=== PATIENT | male | born 1940 | race Caucasian/White ===

== ENCOUNTER 2017-08-29 13:42 | Inpatient (IN) | payer OTHER ==
[~2017-08-29] VITALS: Ht 177.8 cm; Wt 67.6 kg
[2017-08-29] MEDS ORDERED: TYLENOL EXTRA500 MG PO (14:44)
[2017-08-29] MEDS ORDERED: ACCUNEB SO1.25 MG/1 INH (14:45)
[2017-08-29] MEDS ORDERED: AMLODIPINE BESY10 MG PO (14:56)
[2017-08-29] MEDS ORDERED: AGGRENOX 25 MG1 EACH PO (14:57)
[2017-08-29] MEDS ORDERED: CARBAMAZEPINE100 MG PO (14:58)
[2017-08-29] MEDS ORDERED: VITAMIN D1000 UNI1 PO (14:59)
[2017-08-29] MEDS ORDERED: COLACE100 MG PO (15:00)
[2017-08-29] MEDS ORDERED: CARDURA4 MG PO (15:01)
[2017-08-29] MEDS ORDERED: DURAGESIC1 EAC1 TRANSDERM (15:02)
[2017-08-29] MEDS ORDERED: IRON325 PO (15:03)
[2017-08-29] MEDS ORDERED: HYDROPHILIC113 GM TOP (15:04)
[2017-08-29] MEDS ORDERED: NOVOLOG100 UNIT/1 SUBQ ×2 (15:05→15:07)
[2017-08-29] MEDS ORDERED: LEVEMIR SUBQ (15:06)
[2017-08-29] MEDS ORDERED: LIDOPRO OINTME121 GM TOP (15:09)
[2017-08-29] MEDS ORDERED: PRINIVIL10 MG PO (15:10)
[2017-08-29] MEDS ORDERED: NORTRIPTYLINE H50 M3 PO (15:11)
[2017-08-29] MEDS ORDERED: OXYCONTIN10 M1 PO (15:12)
[2017-08-29] MEDS ORDERED: MIRALAX17 GM PO (15:12)
[2017-08-29 17:00] VITALS: BP 166/73
[2017-08-29 20:26] VITALS: BP 105/52; BP 155/80
--- NOTE | 2017-08-29 23:36 | NUR ---
ASSUMED CARE AT 1930. PATIENT S/P LT AKA. RESTING IN BED. HAS STUMP ELECTRIC RANGE ASSEMBLER ON, BUT DRESSING WAS FOUND TO BE DISLODGED OFF INCISION. THIS NURSE CLEANSED WITH WOUND CLEANSER, TELFA APPLIED OVER INCISION, AND REWRAPPED WITH FRANK. STUMP ELECTRIC RANGE ASSEMBLER RE APPLIED. WAS IN MUCH PAIN AT BEGINNING OF SHIFT, INCISION VERY TENDER. NEW ORDERS OBTAINED FOR MEDS HE TAKES AT HOME. HYDROCODONE TOLERATED MUCH BETTER THAN OXYCODONE. ASSISTED WITH TURNS. TAKES PILLS WHOLE WITH WATER. ENCOURAGED HEEL OFFLOADED. BED ALARM ON. CALL LITE IN REACH. HOURLY ROUNDS CONTINUE.
[2017-08-30 04:29] LABS: HEMATOCRIT 26.9 % (42.0-52.0); MCH 27.9 pg (26.0-34.0); MCHC 33.3 g/dL (28.0-37.0); MCV 83.6 fL (80.0-100.0); MPV 6.8 fl. (7.2-11.1); RBC 3.21 mil/uL (4.50-6.00); WBC 7.4 thou/uL (4.0-11.0)
[2017-08-30 05:05] LABS: CALCIUM 8.8 mg/dL (8.5-10.1); CREATININE 2.2 mg/dL (0.6-1.3); POTASSIUM 5.1 mmol/L (3.5-5.1)
--- NOTE | 2017-08-30 05:56 | NUR ---
SLEPT MOST OF THE NIGHT. REFUSES TURNS. STUMP BLOCKER AND POLISHER GOLD WHEEL CONTINUES TO BE IN PLACE. MEDICATED FOR PAIN, SEE AUG. BED KATHERINE ON. CALL LITE IN REACH. HOURLY ROUNDS CONTINUE.
[2017-08-30 07:51] VITALS: BP 130/70
--- NOTE | 2017-08-30 18:58 | NUR ---
PT CARE ASSUMED THIS AM, ASSESSMENT AND VITAL SIGNS COMPLETED DOCUMENTED. DRESSING AND STUMP PROTECTOR REMAIN IN PLACE. PT HAS BEEN COOPERATIVE AND HAS WORKED WITH THERAPISTS. PAIN CONTROL HAS BEEN DIFFICULT, PRN OXY IR, HYDROCODONE AND TYLENOL ALL GIVEN WITH PARTIAL RELIEF OBTAINED. PT ENCOURAGED TO ELEVATE HIS RESIDUAL LIMB WHEN IN BED. PT HAS BEEN ABLE TO TRANSFER WITH MIN/MOD ASSIST, GAIT BELT AND WALKER. FALL PRECAUTIONS AND HOURLY ROUNDING CONTINUE.
[2017-08-30 20:24] VITALS: BP 116/55
--- NOTE | 2017-08-31 05:23 | NUR ---
ASSUMED CARES AT 1920. PT ALERT AND ORIENTED. PLEASANT. S/P LT AKA. STUMP DIRECTOR OF HOME HEALTH SERVICES IN PLACE. C/O PAIN TO LEFT STUMP. PAIN MEDS GIVEN NEEDED. TAKES PILLS WHOLE WITHOUT ISSUES. LEA CATHETER DD YELLOW URINE. SLEPT MOST OF THE NIGHT. NO OTHER COMPLAINTS. BED ALARM ON. CALL LIGHT IN REACH.
[2017-08-31 08:00] VITALS: BP 147/69
--- NOTE | 2017-08-31 16:58 | NUR ---
AM ASSESSMENT AND VITAL SIGNS COMPLETED DOCUMENTED. PT HAS REFUSED TO GET OUT OF BED TODAY, STATES HE ISN'T GETTING UP IF THERE IS NO THERAPY. PRN PAIN MEDICATIONS GIVEN FREQUENTLY SCHEDULE ALLOWS, PT RESTS/ SLEEPS BETWEEN DOSES. FC TO DD WITH CLEAR YELLOW URINE OUTPUT. DRESSING AND STUMP PROTECTOR REMAIN INTACT. FALL PRECAUTIONS AND HOURLY ROUNDING CONTINUE, NO ACUTE DISTRESS.
[2017-08-31 19:49] VITALS: BP 100/73; BP 122/58
--- NOTE | 2017-09-01 05:27 | NUR ---
ASSUMED CARES AT 1920. PT ALERT AND ORIENTED. S/P LEFT AKA. STUMP PRODUCTION CHECKER IN PLACE. LEA CATHETER PATENT AND DRAINING YELLOW URINE. PINK AREA TO BOTTOM RIGHT FOOT. MEPILEX CHANGED. STATES THAT PT NEEDS TO WEAR ALTERATED SHOE WHEN UP DUE TO HX OF OPEN SORE THERE. PAIN MEDS GIVEN PER PT REQUEST. ATE HS SNACK. USED CALL LIGHT APPROPRIATELY. BED ALARM ON.
[2017-09-01 07:56] VITALS: BP 147/66
--- NOTE | 2017-09-01 12:45 | NUR ---
Nutrition: Pt admitted to Rehab s/p AKA. Has stump perforator operator oil well. H/o DM, CKD, PVD, CVA, HTN. Eating 100% of CHO controlled diet. Wt: 160#. +BM. BG 145. On insulin. Appears at low risk. Will follow weekly.
--- NOTE | 2017-09-01 16:41 | NUR ---
WOUND NURSE: PATIENT SEEN TO ADDRESS AREA OF REDNESS ON THE PLANTAR ASPECT OF THE RIGHT FOREFOOT. PATIENT SEEN USING HIS FOOT TO PROPEL HIS WHEELCHAIR. PATIENT WAS ENCOURAGED TO PROPEL WHEELCHAIR USING HIS ARMS INSTEAD OF HIS FOOT. EXPLAINED MY REASONING FOR THIS IT PLACES HIM AT RISK FOR BREAKDOWN ESPECIALLY SINCE PATIENT REPORTING HE HAS NO SENSATION IN THE FOOT. PATIENT IS PROTECTING THE AREA WITH A BORDERED FOAM DRESSING.
--- NOTE | 2017-09-01 18:08 | NUR ---
pt calls for assist for transferrs to w/c and commode with 1 assist. dressing to lt stump intact. wound nurse charlene here this afternoon and has changed dressing to ball of rt. foot with no open areas noted. prn for lt stump pain given with good effect. pt keeps stump elevated. pt remains alert and orientated and eats meals in dinningroom. pt progresses towards goals and hourly rounding continues.
[2017-09-01 19:49] VITALS: BP 137/56
--- NOTE | 2017-09-01 23:52 | NUR ---
ASSUMED CARES AT 1920. PT ALERT AND ORIENTED. ALREADY IN BED. LEFT AKA WITH STUMP BLOCK SEALER IN PLACE. PAIN MEDS GIVEN REQUESTED. LEA CATHETER DD YELLOW URINE. C/O SOME IRRITATION TO PENIS. LIDOCAINE GELL APPLIED. PT SAYS THAT THIS DOES HELP. PT ANXIOUS FOR LEA TO BE REMOVED. INFORMED PT THAT IT MAY BEW FEW MORE DAYS BEFORE STARTING VOIDING TRIAL. MEPILEX TO RIGHT FOOT IN PLACE. CALL LIGHT IN REACH. WILL CONTINUE TO MONITOR.
--- NOTE | 2017-09-02 06:06 | NUR ---
PT SLEPT WELL OFF AND ON. PAIN MEDS GIVEN DURING THE NIGHT WHEN REQUESTED. TURNED ONTO RIGHT SIDE FOR SHORT TIME BUT OTHERWISE WANTS TO LAY ON BACK. LEFT STUMP UP ONTO PILLOW. CALL LIGHT IN REACH.
[2017-09-02 07:30] VITALS: BP 132/63
--- NOTE | 2017-09-02 16:00 | NUR ---
SW met with pt to complete initial assessment, introduce self, and SW role. Pt alert, oriented. Pt lives at home with . Pt said that [place] is installing a stair lift. Pt has wc, RWs. Pt has history of services but is not sure of the name of the agency and says that his may know the name. Pt did not have any concerns or questions. SW to continue to follow to assist with safe dc planning.
--- NOTE | 2017-09-02 16:49 | NUR ---
PT HAS BEEN UP TO W/C AND CALLS FOR TRANSFER ASSIST. PT DOES STAND PIVIOT TRANSFERR WITH WALKER AND GAITBELT AND QUEING WITH ASSIST OF 1.DRESSING TO LT STUMP CHANGED TODAY WITH TIANA INTACT TO INCISION AND NO DRAINAGE NOTED. PT HSA BLISTERS TO TOP OF LT THIGH FROM PAPER TAPE REMOVED. PICTURES TAKEN AND PLACED ON CHART. XEROFORM JOSE ROBERTO PLACED AND KERLIX WRAP PLACED OVER INCISION TO UPPER THIGH. PRN FOR PAIN GIVEN WITH FAIR EFFECT. PT HAS SHARP NERVE ENDING PAINS. PT HAS BEEN CONTINENT OF B+B AND TRANSFERRS TO TOILET. PT ALERT AND ORIENTATED AND PROGRESSES TOWARDS GOALS.
[2017-09-02 20:07] VITALS: BP 128/59
--- NOTE | 2017-09-03 05:15 | NUR ---
ASSUMED PATIENT CARE AT 1900. PATIENT RESTING IN BED WITH AT BEDSIDE. BLOOD SUGARS HAVE REMAINED IN THE 70'S THROUGHOUT THE DAY. SPOKE TO FAMILY ABOUT BLOOD GLUCOSE RESULTS AND INQUIRED TO HOW THEY MANAGED WHEN AT HOME. FAMILY STATED THAT THEY ALWAYS GIVE HIS INSULIN ORDERED. PATIENT RECEIVED LONG-ACTING INSULIN AT HS, ALONG WITH A SNACK AND SOME JUICE. MINOR COMPLAINTS OF PAIN IN LEFT LEG. DID NOT WITNESS PATIENT AMBULATION OR PERFORM CARE NEEDS. ABLE TO URINATE VIA URINAL DURING NIGHT. NO CONCERNS NOTED BY PATIENT OR SPOUSE. ORDNANCE KEEPER AND HOURLY ROUNDING COMPLETED DOCUMENTED.
[2017-09-03 08:00] VITALS: BP 156/69
--- NOTE | 2017-09-03 14:55 | NUR ---
SW met with pt to review team conference summary and discuss team's recommendation to reteam to reassess pt length of stay during team conference on next Friday. Pt was not sure he really needed to stay another week but agreed that he was making progress and that he may be able to improve closer to independent with tasks. Pt also mentioned that the stair lift is still in the process of being installed. Pt to dc home with and has needed DME; pt did not express any concerns or questions at this time. SW to continue to follow to assist with safe dc planning.
[2017-09-03 17:20] LABS: URINE BILIRUBIN NEGATIVE (Negative); URINE BLOOD 3+ (Negative); URINE CLARITY CLOUDY; URINE COLOR YELLOW; URINE GLUCOSE-RANDOM NEGATIVE (Negative); URINE KETONES NEGATIVE (Negative); URINE LEUKOCYTES-REFLEX 2+ (Negative); URINE NITRITE-REFLEX POSITIVE (Negative); URINE PROTEIN 3+ (Negative); URINE UROBILINOGEN 0.2 E.U./dl (0.2-1.0)
[2017-09-03 18:01] LABS: SQUAMOUS NONE SEEN /LPF (0-3); URINE WBC-REFLEX 6-15 Few /HPF (0-5)
[2017-09-03 18:02] LABS: TRIPLE PHOSPHATE CRYSTALS 4-10 Moderate /LPF (None Seen)
[2017-09-03 18:03] LABS: AMORPHOUS PHOSPHATES Few /LPF (None Seen); HYALINE CASTS 0-3 Few /LPF (None Seen)
--- NOTE | 2017-09-03 18:04 | NUR ---
PT CARE ASSUMED THIS AM, ASSESSMENT AND VITAL SIGNS COMPLETED DOCUMENTED. PT HAS BEEN COOPERAIVE AND HAS WORKED WITH THERAPY, GRADUAL PROGRESS TOWARD DISCHARGE GOALS. FENTANYL PATCH DOSE INCREASED FOR BETTER PAIN MANAGEMENT.
[2017-09-03 18:05] LABS: MUCUS None Seen strn/LPF (None Seen)
--- NOTE | 2017-09-03 18:20 | NUR ---
PT RESTING IN BED AFTER DINNER, OXY IR 10 MG GIVEN FOR BREAKTHROUGH PAIN WITH GOOD RELIEF OBTAINED. URINE SPECIMEN SENT TO THE LAB, UTI IS PRESENT, CULTURES PENDING. DRESSING AND STUMP PROTECTOR C/D/I TP LEFT RESIDUAL LIMB. HOURLY ROUNDING AND FALL PRECAUTIONS CONTINUE.
[2017-09-03 19:46] VITALS: BP 101/34
--- NOTE | 2017-09-04 05:12 | NUR ---
ASSUMED PT CARE AT 1930. PT ALERT AND ORIENTED X4. ALREADY IN BED AT SHIFT CHANGE. LEFT AKA WITH STUMP THREADER IN PLACE. TAKES PILLS WHOLE WITH WATER WITHOUT DIFFICULTY. LEA CATHETER TO DD DRAINING YELLOW URINE. PT TO START VOIDING TRIAL TODAY. PT SLEPT WELL OVERNIGHT. CALL LIGHT AND FREQUENTLY USED ITEMS WITHIN REACH. HOURLY ROUNDING IN PROGRESS, WILL CONTINUE TO MONITOR.
[2017-09-04 07:48] VITALS: BP 147/57
--- NOTE | 2017-09-04 16:48 | NUR ---
AM ASSESSMENT AND VITAL SIGNS COMPLETED DOCUMENTED. PT STATES HIS PAIN BETTER CONTROLLED WITH THE FENTANYL PATCH. PRN OXY IR GIVEN TWICE THIS SHIFT WITH GOOD RELIEF. DRESSING AND STUMP PROTECTOR IN PLACE. PT IS MAKING GOOD PROGRESS TOWARD DISCHARGE GOALS. PT IS TRANSFERRING WITH MIN ASSIST OF NURSING, GAIT BELT AND WALKER. LEA CATH IS TO BE DC'D FRIDAY FOR A VOIDING TRIAL. FALL PRECAUTIONS AND HOURLY ROUNDING IN PLACE.
[2017-09-04 20:19] VITALS: BP 120/55
--- NOTE | 2017-09-05 05:21 | NUR ---
ASSUMED PT CARE AT 1930. PT ALERT AND ORIENTED X4, POLITE AND COOPERATIVE WITH CARES. ALREADY IN BED AT SHIFT CHANGE. LEFT AKA WITH DRESSING AND STUMP SECONDARY HISTORY TEACHER IN PLACE. PRN OXY IR GIVEN TWICE THIS SHIFT. TAKES PILLS WHOLE WITH WATER WITHOUT DIFFICUTLY. LEA CATH TO BE DC'D TODAY FOR VOIDING TRIAL. CALL LIGHT AND FRQUENTLY USED ITEMS WITHIN REACH. BED ALARM ON FOR SAFETY. HOURLY ROUNDING IN PROGRESS, WILL CONTINUE TO MONITOR.
[2017-09-05 07:30] VITALS: BP 135/61
--- NOTE | 2017-09-05 17:40 | NUR ---
PT HAS VOIDED SINCE LEA REMOVED WITH TOTAL 400ML CLEAR YELLOW URINS. BLADDER SCAN DONE WITH 160ML RESIDUAL AFTER 200ML VOID. PT REMINDED TO DRINK FLUIDS FOR GOOD OUTPUT. PT ALSO STARTED ON FLOMAX TODAY AND PO ANTIBIOTIC FOR UTI. PRN FOR LT STUMP PAIN GIVEN WITH GOOD EFFECT. PT HAS PAIN WHEN LT STUMP TOUCHED WITH MOVEMENT. PT REMAINS ALERT AND ORIETNATED AND CALLS FOR ASSIST WITH ALL TRAMSFERRS. PT TRANSFERRS WELL WITH GAITBELT, WALKER AND MIN ASSIST WITH PIVIOT AND HOPPING. PT CONTINUES TO PROGRESS TOWARDS GOALS AND HOURLY ROUNDING CONTINUES.
[2017-09-05 20:18] VITALS: BP 145/57
--- NOTE | 2017-09-06 05:28 | NUR ---
ASSUMED PT CARE AT 1930. PT ALERT AND ORIENTED X4, COOPERATIVE WITH CARES. LEFT AKA WITH DRESSING AND STUMP SUPERINTENDENT CONTAINER TERMINAL IN PLACE. SCHEDULED FLOMAX GIVEN, PT VOIDED 850 CC OF URINE THIS SHIFT. PT TRANSFERS WITH MIN ASSIST, GAITBELT, WALKER. PRN MEDICATION GIVEN FOR LEFT STUMP PAIN. CALL LIGHT AND FREQUENTLY USED ITEMS WITHIN REACH. USES CALL LIGHT APPROPRIATELY. HOURLY ROUNDING IN PROGRESS, WILL CONTINUE TO MONITOR.
[2017-09-06 07:00] VITALS: BP 148/66
--- NOTE | 2017-09-06 16:40 | NUR ---
ASSUMMED CARE OF PT AT 0730, PT ALERT AND ORIENTED, PT TRANSFERS WITH ASSIST OF 1, GB AND STAND PIVOT, PT REFUSES TO USE WALKER AT TIMES TO TRANSFERS, PT INSTRUCTED THAT HE NEEDS TO USE WALKER FOR SAFETY, PT STATES HIS PAIN IS 7-10 IN HIS LEFT STUMP, MEDICATED PER ORDERS, PT STATES HAS SPASMS AT INTERVALS, PT VOIDS PER URINAL IN LARGE AMOUNTS, DRESSING C/D/I. STUMP CLINICAL THERAPIST INTACT, TAKING FOOD AND FLUIDS WELL, REFUSES TO GO TO DININGROOM FOR MEALS, PARTICIPATED IN ALL THERAPIES, HOURLY ROUNDING COMPLETED, ASSESSMENT COMPLETE WILL CONTINUE TO MONITOR.
[2017-09-06 19:55] VITALS: BP 111/51
--- NOTE | 2017-09-06 19:55 | NUR ---
SITTING UP IN BED VISITING WITH AND ANOTHER FEMALE VISITOR. SLEETMUTE AND QUESTIONS HAD TO BE REPEATED. HAS SNACKS IN ROOM. WANTS MILK AT BEDTIME. RUBS HIS LEFT LEG BUT DENIES PAIN AT THIS TIME.
--- NOTE | 2017-09-07 04:51 | NUR ---
USED URINAL X ONE DURING THE NIGHT. ASSISTED WITH GETTING FROM LYING TO SITTING POSITION SO PT COULD SIT ON SIDE OF THE BED TO USE THE URINAL. NO COMPLAINTS VOICED. HOURLY ROUNDING IN PROGRESS.
[2017-09-07 09:18] VITALS: BP 138/58
--- NOTE | 2017-09-07 18:03 | NUR ---
ASSUMMED CARE OF PT [id number], PT ALERT AND ORIENTED, TRANSFERS WITH MIN ASSIST GB AND WALKER, PT REFUSED BATH THIS SHIFT, DID BRUSH TEETH AND DID PERICARE WITH NYSTATIN APPLIED TO SCROTAL AREA, PT COMPLAINED OF MOUTH PAIN GREATER UNDER LOWER DENTURE, ORDERED OBTAINED AND MAGIC MOUTHWASH GIVEN PER ORDER, PT COMPLAINS OF SHARP PAIN DOWN LEFT STUMP AREA, DISCUSSED WITH OCCUPANCY SPECIALIST, ORDER OBTAINED FOR HYDROCODONE BUT PT STATES A 5 MG TAB WILL NOT WORK FOR HIM, DISCUSSED FURTHER WITH PHYSICIAN AND FREQUENCY OF PAIN MED INCREASE FROM 6 TO 4 HOURS, PT MEDICATED PER ORDER, PT DID STATE PAIN SLIGHTLY BETTER THIS PM, PT DID TRANSFER PT FROM BED TO WHEELCHAIR X 1 THIS SHIFT, AND PT INSTRUCTED THAT STAFF NEED TO BE PRESENT FOR TRANSFERS, STATED SHE FEELS COMFORTABLE DOING TRANSFER AND DID USE GB AND WALKER, BUT AGAIN REINFORCED THAT STAFF NEED TO BE PRESENT, PT VOIDS PER URINAL, PT NOT EATING MUCH THIS SHIFT DUE TO MOUTH PAIN, SOFT FOODS OFFERED, PT HAS REFUSED TO TAKE SCHEDULED AMOUNT OF INSULIN AND HAS ONLY TAKEN HALF OF SCHEDULED DOSAGE, DRESSING CHANGED TO THIGH, FOOT AND STUMP INCISION, STUMP PROTECTOR ON, HOURLY ROUNDING COMPLETED, PT REPOSITIONED EVERY 2 HOURS, ASSESSMENT COMPLETE, WILL CONTINUE TO MONITOR.
[2017-09-07 19:40] VITALS: BP 137/84
--- NOTE | 2017-09-07 19:40 | NUR ---
RESTING QUIELTY IN BED WATCHING TV. AT BEDSIDE. DENIES DISCOMFORT. SNACK PROVIDED.
--- NOTE | 2017-09-08 06:10 | NUR ---
RESTED ON/OFF. HAD DIFFICULTY WITH LEFT STUMP PAIN. AT BEDTIME WHEN SAT UP ON SIDE OF THE BED TO VOID PER URINAL WAS IN SO MUCH PAIN WASN'T ABLE TO VOID. GAVE PAIN MED FOR PAIN RATED "10". LATER PATIENT WAS ABLE TO VOID. PAIN MED GIVEN AT 0347. THIS MORNING PATIENT IS SMILING AND IN GOOD SPIRITS. STATES PAIN IS RESOLVED. HOURLY ROUNDING IN PROGRESS.
[2017-09-08 08:00] VITALS: BP 137/60
--- NOTE | 2017-09-08 15:50 | NUR ---
pt has participated with therapies and had better pain control since given muscle relaxer this afternoon. dressing to lt stump changed and to lt thigh with blisters drying. stump protector on with pt educated to assist with placement. pt alert and orientated but slower to respond today enrico last week. pt reminded to call for assist with transferrs. pt was inc of bladder this am and transferred self to commode. pt able to transferr with gaitbelt and walker and piviot to w/c and bed. pt voiding well and has had bm today. pt progresses towards goals and hourly rounding continues.
[2017-09-08 19:45] VITALS: BP 118/53
--- NOTE | 2017-09-08 19:45 | NUR ---
PT RESTING IN BED. AT BEDSIDE. PT SLOWER TO RESPOND AND LESS ORIENTED THAN LAST TWO NIGHTS AT THIS TIME. CONCERNED FLEXERIL GIVEN EARLIER IS CAUSING PT'S CHANGE OF MENTAL STATUS. PT WANTS TO KEEP TAKING THE FLEXERIL SINCE IT PROVIDED SO MUCH RELIEF TO LEFT STUMP DISCOMFORT. BLOOD GLUCOSE 60. PT PROVIDED WITH SHERBERT. STATES PT HAD DIFFICULTY MANUEVERING THE SPOON TO CONSUME HIS SHERBERT. PAIN MED GIVEN FOR C/O LEFT STUMP PAIN.
--- NOTE | 2017-09-09 05:21 | NUR ---
RESTED ON/OFF. USED URINAL X TWO DURING THE NIGHT WITHOUT SITTING ON SIDE OF BED USUAL. SPILLED SOME URINE ON INCONTINENT PAD. CONSUMED TWO PEANUT BUTER CRACKERS AND SOME MILK AT ABOUT 2330. DECREASED MENTAL STATUS SEEMS RESOLVED. PT SEEMS TO BE BACK TO BASE LINE. HOURLY ROUNDING IN PROGRESS.
[2017-09-09 08:30] VITALS: BP 110/64
--- NOTE | 2017-09-09 15:37 | NUR ---
SW called and spoke with pt Joelle to discuss team conference meeting is tomorrow and pt did not have any questions or concerns. Pt aware of pt appt with Dr Kearney at [place] on 09/11 at 1400 and SW to arrange transportation. Pt said she thought that the appt would be in [facility] or Podiatry office but she said she was not sure yet and would send message to nurses' station and SW to continue to follow to arrange ride. SW assist with safe dc planning.
--- NOTE | 2017-09-09 16:34 | NUR ---
pt having less forgetfullness this afternoon. fentanly patch dose decreased and changed today. pt has haken vicodin this am with good effect through day. pt has been voiding well useing urinal or assisted to toilet. pt has taken miralax this am to promote bm. pt is [place] with directions frequently repeated for understanding. pt has come to the dinningroom and eaten lunch and visits with others. dressing to lt stump remains dry and intact with stump protector on. dressing to lt thigh changed with area healing. pt calls for assist with transferrs and does standing piviot with walker gaitbelt queing ans assist of 1.pt progresses towards goals and hourly rounding continues.
[2017-09-09 19:45] VITALS: BP 120/48
--- NOTE | 2017-09-09 23:50 | NUR ---
ASSUMED CARE AT 1930. PATIENT S/P LT AKA. RESTING IN BED. REFUSES ASSIST WITH TURNS. TAKES PILLS WHOLE WITH WATER. VOIDS BY SITTING ON SIDE OF BED AND USING URINAL. DRESSING TO LT AKA C/D/I. STUMP NEGATIVE TURNER APPRENTICE IN PLACE. C/O SEVERE PAIN, GIVEN OXY IR WITH GOOD RELIEF. SEE MAR. BLOOD SUGAR AT HS 73. GIVEN APPLE JUICE, SALTINE CRACKERS, PB/CHEESE CRACKERS, PACKAGE OF PEANUT BUTTER. ONLY DRANK APPLE JUICE, REFUSING TO CONSUME OTHER ITEMS LEFT AT BEDSIDE. BLOOD SUGAR 115 AT 2107. PATIENT REQUESTED TO TAKE HALF DOSE OF LANTUS INSULIN, WHICH WOULD BE 15 UNITS. THIS NURSE INSTRUCTED PATIENT TO EAT SOME MORE OF THE SNACKS AT HIS BEDSIDE. HOURLY ROUNDS CONTINUE. CALL LITE IN REACH.
--- NOTE | 2017-09-10 06:17 | NUR ---
SLEPT MOST OF THE NIGHT. REFUSED ASSIST WITH TURNS. UP AROUND 0530, UP WITH SBA, WALKER TO W/C THEN TO TOILET. HAD MOD BM PER TOILET. DID OWN HYGIENE. PUT SHORTS ON AND RETURNED TO W/C. CHAIR ALARM ON. CALL LITE IN REACH. HOURLY ROUNDS CONTINUE
[2017-09-10 08:12] VITALS: BP 132/51
--- NOTE | 2017-09-10 16:34 | NUR ---
ASSUMMED CARE OF PT AT 0730, PT ALERT AND ORIENTED, FORGETFUL, PT USING CALL LIGHT APPROPRIATELY THIS SHIFT, TRANSFERS WITH MOD ASSIST GB AND WALKER, STAND /PIVOT, PT NEEDS CUEING,PT COMPLAINS OF PAIN IN LEFT STUMP, MEDICATED PER ORDER, PT DOES REST IN BETWEEN THERAPIES, PT VOIDS PER URINAL, HAD LUNCH IN DININGROOM, PROPELS WHEELCHAIR WITHOUT DIFFICULTY, STUMP DRESSING CHANGED, STUMP PRECONSTRUCTION MANAGER ON, PARTICIPATED IN ALL THERAPIES, HOURLY ROUNDING COMPLETED, TAKING FOOD AND FLUIDS WELL, ASSESSMENT COMPLETE, WILL CONTINUE TO MONITOR.
--- NOTE | 2017-09-10 16:42 | NUR ---
SW met with pt to review team conference summary. Plan for pt to remain on rehab and work on transfers and lower body dressing at least another week and reassess pt length of stay during team conference during next team conference on Sunday 09/17. Pt okay with plan and did not have any questions or concerns. SW arranged for pt to have a ride to [place] appt for tomorrow 09/11 at 1400. SW to continue to follow to assist with safe dc planning.
--- NOTE | 2017-09-10 20:20 | NUR ---
PT SITTING UP IN BED RESTING AND VISITING WITH . PT CONFUSED AND SLOW TO RESPOND BUT FOLLOWS COMMANDS AND ABLE TO MAKE NEEDS KNOWN. TOOK MEDS WHOLE A FEW AT A TIME WITH WATER. STUMP REHAB MANAGER DRY/INTACT. SNACK PROVIDED.
[2017-09-10 20:35] VITALS: BP 125/53
--- NOTE | 2017-09-11 05:15 | NUR ---
USED URINAL X 4 DURING THE NIGHT. SPILLED URINE ONTO INCONTINENT PAD AND ONTO HIS SHIRT. COULDN'T SLEEP UNTIL ABOUT 0300. PT STATES [facility]. GAVE FLEXERIL AT 0047 FOR C/O LEFT STUMP DISCOMFORT WITH RELIEF. HOURLY ROUNDING IN PROGRESS.
[2017-09-11 07:40] VITALS: BP 115/52
--- NOTE | 2017-09-11 17:47 | NUR ---
[facility] THIS AFTERNOON AND PLANS TO RETURN SOON. IS WITH PT AT APPOINTMENT. PT HAD PARTICIPATED WITH THERAPIES EARTLIER TODAY. PT ALERT BUT CAN FALL OFF TO SLEEP EASILY WITH PAIN MEDICATIONS. STUMP CREDIT CARD CONTROL CLERK HAS BEEN INTACT TO LT STUMP AND WAS REPOSITIONED. PT ENCOURAGED TO EAT MEALS AND DID EAT PUDDING SNACK BEFORE GOING TO APPOINTMEN.PT LEFT ABOUT 1345; WAS LATE BEING PICKED UP FOR 1400 APPOINTMENT. HAS CALLED AND INFORMED US OF NEED TO HAVE PT PICKED UP WITH [facility] NOTIFIED AND CALL OUT TO EXPRESS TO THEATER PROJECTIONIST PT TO RETURN TO REHAB.PRN FOR PAIN GIVEN TO PT BEFORE LEAVING FOR APPOINTMENT.
--- NOTE | 2017-09-11 18:13 | NUR ---
[place] [place] AND DOES NOT WANT TO EAT NOW. BG 178 AND PT DOES NOT WANT INSULIN GIVEN. WILL REPORT TO MACHINE PACKER TO OFFER BOX LUNCH LATER. PT IS ALERT AND ORIENTATED AND REPORTS BEING TIRED. PT TRANSFERRED TO BED WITH GAITBELT, WALKER AND MIN ASSIST OF 1 WITH GOOD HOP PIVIOT TRANSFERR. AT BEDSIDE AND PLANS TO STAY FOR A WHILE. REPORTS TIANA WERE NOT TAKEN OUT AND [place] PLANS TO LEAVE THEM IN FOR ANOTHER COUPLE OF WEEKS. HAS MADE APPOINTMANT FOR NEXT VISIT IN 2 WEEKS. ALSO ASKED ABOUT RESUMING PLAVIX AND WAS TOLD NOT AT THIS TIME.
[2017-09-11 20:13] VITALS: BP 113/48
--- NOTE | 2017-09-12 05:16 | NUR ---
ASSUMED PT CARE AT 1930. PT ALERT AND ORIENTED BUT DROWSY. AT BEDSIDE. PT TIRED FROM GOING TO DOCTOR'S APPPOINTMENT AT THE [facility]. PER PT'S [facility] DOCTOR PLANS TO LEAVE TIANA IN FOR ANOTHER COUPLE OF WEEKS. STUMP MEDIA MANAGER C/D/I. PT BLOOD SUGAR 134. PT CONVINCED TO EAT SUBSTANTIAL BEDTIME SNACK OF MILK, PEANUT BUTTER CRACKERS AND SHERBERT. REFUSED BOX LUNCH. PT TOOK PILLS WHOLE A FEW AT A TIME WITH WATER. PT USED URINAL SUCCESSFULLY WHILE LAYING IN BED. SLEPT WELL OVERNIGHT. PRN PAIN MEDICATION ONCE THIS SHIFT. BED ALARM ON FOR SAFETY. CALL LIGHT AND FREQUENTLY USED ITEMS WITHIN REACH. HOURLY ROUNDING IN PROGRESS, WILL CONTINUE TO MONITOR.
[2017-09-12 07:00] VITALS: BP 116/52
--- NOTE | 2017-09-12 16:32 | NUR ---
ASSUMMED CARE OF PT AT 0730, PT ALERT AND ORIENTED, FORGETFUL AT TIMES, MORE AWAKE THIS SHIFT, PT STATES PAIN IS IMPROVING, FENTANYL PATCH DOSE DECREASED, PT REQUESTED PAIN MEDS X 1 THIS SHIFT, TRANSFERS WITH ASSIST OF 1, GB WALKER WITH STAND PIVOT, TAKING FOOD AND FLUIDS WELL, PT REFUSES TO TAKE SCHEDULED INSULIN DOSES ORDERED, DECIDES AMOUNT OF INSULIN HE WILL TAKE DEPENDING ON HOW MUCH FOOD HE THINKS HE WILL EAT, DRESSING C/D/I, STUMP OPTICAL EFFECTS LINE UP PERSON ON, PT VOIDS LARGE AMOUNT OF URINE THIS SHIFT, PT COMPLAINS OF BURNING AT TIP OF PENIS WITH VOID THIS PM, BUT DID STATE WAS BETTER WITH NEXT VOID, URINE APPEARS CLEAR, WILL NOTIFY PHYSICIAN IF CONTINUES, PARTICIPATED IN ALL THERAPIES, HOURLY ROUNDING COMPLETED ASSESSMENT COMPLETE, WILL CONTINUE TO MONITOR.
[2017-09-12 20:00] VITALS: BP 117/51
--- NOTE | 2017-09-13 05:32 | NUR ---
ASSUMED PT CARE AT 1930. PT ALERT AND ORIENTED, COMPLAINING OF PAIN, PRN PAIN MEDICATION GIVEN X2 THIS SHIFT. AT BEDSIDE AT SHIFT CHANGE HELPING PT WITH BEDTIME SNACK. PT REFUSES TO TAKE ORDERED AMOUNTS OF INSULIN, CHOOSES AMOUNT HE WILL TAKE. STUMP DRAG DOWN ON, DRESSING C/D/I. PT VOIDED X1 PER URINAL. NO C/O PAIN WITH VOIDS. PT C/O LOWER BACK PAIN, PILLOW PLACED UNDER HIS BACK AND PT TURNED TO RIGHT SIDE WITH SOME RELIEF. CALL LIGHT AND FREQUENTLY USED ITEMS WITHIN REACH. USES CALL LIGHT APPROPRIATELY. BED ALARM ON FOR SAFETY. HOURLY ROUNDING IN PROGRESS, WILL CONTINUE TO MONITOR.
[2017-09-13 08:00] VITALS: BP 124/78
[2017-09-13 08:15] LABS: URINE BILIRUBIN NEGATIVE (Negative); URINE BLOOD NEGATIVE (Negative); URINE CLARITY CLEAR; URINE COLOR YELLOW; URINE GLUCOSE-RANDOM NEGATIVE (Negative); URINE KETONES NEGATIVE (Negative); URINE LEUKOCYTES-REFLEX NEGATIVE (Negative); URINE NITRITE-REFLEX NEGATIVE (Negative); URINE PROTEIN 1+ (Negative); URINE SPECIFIC GRAVITY 1.015 (1.005-1.030); URINE UROBILINOGEN 0.2 E.U./dl (0.2-1.0)
--- NOTE | 2017-09-13 16:32 | NUR ---
AM ASSESSMENT AND VITAL SIGNS COMPLETED DOCUMENTED. PT C/O LOW BACK PAIN THIS AM. UA SENT TO LAB AND RESULTS WERE NEGATIVE FOR INFECTION. HIMS NOTIFIED, NO NEW ORDERS REC'D. PRN PAIN MEDICATIONS GIVEN WITH GOOD RESULTS. DRESSING TO LEFT STUMP REMAINS C/D/I WITH STUMP SPIKEMAKING SUPERVISOR OVER IT. PT DID PARTICIPATE IN THERAPY AT A BED LEVEL THIS AM AND GOT UP TO A WHEELCHAIR FOR AFTERNOON THERAPY. FALL PRECAUTIONS AND HOURLY ROUNDING CONTINUE.
[2017-09-13 20:00] VITALS: BP 116/51
--- NOTE | 2017-09-14 05:09 | NUR ---
ASSUMED PT CARE AT 1930. PT ALERT AND ORIENTED, SITTING UP IN BED VISITING WITH . PT C/O BACK PAIN, PRN PAIN MEDICATION GIVEN X2 THIS SHIFT. PT REFUSES TO TAKE ORDERED AMOUNTS OF INSULIN, CHOOSES AMOUNT HE WILL TAKE. STUMP NET SOFTWARE ENGINEER ON, DRESSING C/D/I. PT VOIDED PER URINAL X2 OVERNIGHT. PT CONTINUES TO REFUSE TURNS. CALL LIGHT AND FREQUENTLY USED ITEMS WITHIN REACH. USES CALL LIGHT APPROPRIATELY. BED ALARM ON FOR SAFETY. HOURLY ROUNDING IN PROGRESS, WILL CONTINUE TO MONITOR.
[2017-09-14 08:00] VITALS: BP 123/59
--- NOTE | 2017-09-14 10:19 | NUR ---
AM ASSESSMENT AND VITAL SIGNS COMPLETED DOCUMENTED. PT HAS C/O PHANTOM PAIN AND MUSCLE SPASMS IN LEFT LEG. PRN MEDICATIONS GIVEN WITH PARTIAL RELIEF. PT USES THE URINAL AND STAFF EMPTIES IT. FALL PRECAUTIONS AND HOURLY ROUNDING IN PLACE. WILL CONTINUE TO MONITOR.
--- NOTE | 2017-09-14 18:47 | NUR ---
PT RESTED IN BED UNTIL EARLY AFTERNOON DUE TO PHANTOM PAINS IN LEFT LEG. PRN PAIN MEDICATIONS GIVEN REQUESTED AND ATTEMPTS MADE TO REPOSITION BUT PT TURNS BACK TO HIS BACK AFTER ONLY A FEW MINUTES. PT TRANSFERS FROM BED TO WITH GAIT BELT, WALKER AND MOD ASSIST. HOURLY ROUNDING AND FALL PRECAUTIONS IN PLACE.
[2017-09-14 20:00] VITALS: BP 118/52
--- NOTE | 2017-09-15 05:36 | NUR ---
ASSUMED CARES AT 1920. PT ALERT AND ORIENTED. CALM AND COOPERATIVE. S/P LEFT AKA. ALREADY IN BED. TAKES PILLS WHOLE WITHOUT ISSUES. PAIN MEDS GIVEN WHEN REQUESTED. PT USED URINAL AND RN EMPTIED. SLEPT WELL MOST OF THE NIGHT. CALL LIGHT IN REACH AND BED ALARM ON.
[2017-09-15 08:00] VITALS: BP 125/61
--- NOTE | 2017-09-15 16:14 | NUR ---
ASSUMMED CARE OF PT AT 0730, PT ALERT AND ORIENTED, FORGETFUL, TRANSFERS WITH STAND PIVOT GB AND WLAKER, COMPLAINS OF PHANTOM PAIN IN LEFT LEG, ALSO COMPLAINS OF PAIN IN RIGHT SIDE UNDER RIB CAGE, PHYSICIAN AWARE OF RIB PAIN, MEDICATED PER ORDERS FOR PAIN, VOIDS PER URINAL, TAKING FOOD AND FLUIDS WELL, PT COMPLAINED OF PILLS STICKING IN THROAT, SEVERAL SWALLOW ATTEMPTS NEEDED, APPLESAUCE GIVEN, SPEECH AWARE OF DIFFICULTY WITH PILLS, INCISION HAS SMALL AMOUNT OF SANGUINOUS DRAINAGE FROM INNER 1/4 OF INCISION, CLEANSED AND NON ADHERING DRESSING PLACED, PT REFUSED TO HAVE KERLIX WRAPPED FOR DRESSING, STUMP WELDER BOILERMAKER ON, THIGH ABRAIONS LEFT MERON, MEPILEX TO RIGHT FOOT, PARTICIPATED IN ALL THERAPIES, HOURLY ROUNDING COMPLETED, ASSESSMENT COMPLETE, WILL CONTINUE TO MONITOR.
[2017-09-15 20:00] VITALS: BP 108/44
--- NOTE | 2017-09-16 05:21 | NUR ---
ASSUMED PT CARE AT 1930. PT ALERT AND ORIENTED, POLITE AND COOPERATIVE WITH CARES. S/P LEFT AKA. ALREADY IN BED AT SHIFT CHANGE. REQUESTED PRN PAIN MEDICATION ONCE AT HS FOR LEG PAIN. NO C/O PAIN IN RIBCAGE. PT TOOK PILLS A FEW AT A TIME WHOLE WITH WATER WITHOUT DIFFICULTY. SMALL AMOUNT OF SANGUINOUS DRAINAGE ON NON-ADHERENT DRESSING TO STUMP. PT USED URINAL OVERNIGHT, RN EMPTIED. PT SLEPT WELL OVERNIGHT. CALL LIGHT AND FREQUENTLY USED ITEMS WITHIN REACH. HOURLY ROUNDING IN PROGRESS, WILL CONTINUE TO MONITOR.
[2017-09-16 08:00] VITALS: BP 124/59
[2017-09-16 11:00] VITALS: BP 153/85
--- NOTE | 2017-09-16 16:50 | NUR ---
SW called and spoke with pt Joelle at [phone] and discussed team conference tomorrow. Pt said she felt pt was not quite ready to return home yet, pt also expressed that DME was to be installed and provided this week but that nothing had been finalized yet. Pt expressed concern that pt is not strong enough to be safe at home and wondered if pt diet could be changed a little as pt expressed pt is not eating well in the hospital. SW to express pt 's concerns during team conference and SW to continue to follow to assist with safe dc planning.
--- NOTE | 2017-09-16 17:49 | NUR ---
ASSUMMED CARE OF PT AT 0730, PT ALERT AND ORIENTED, LESS DROWSY THIS SHIFT, PT TRANSFERS WITH STAND PIVOT, GB WALKER, PT AMBULATES TO BATHROOM X 1 FOR BM, VOIDSPER URINAL, PT HAS POOR APETITE, ATE LITTLE FOR BREAKFAST OR LUNCH, BUT BROUGHT IN FOOD FOR EVENING MEAL AND PT ATE WELL, WHILE IN PT THIS AM PT COMPLAINED OF TIGHTNESS IN CHEST, PT RETURNED TO BED, VSS, PHYSICIAN NOTIFIED, CXR DONE WITH NEGATIVE RESULTS, PT STATED TIGHT FEELING DISSAPATED WITHIN A FEW MINUTES, LIDOCAINE PATCH ORDER ALSO, WHEN NURSE TOOK PATCH IN TO APPLY PT DENIED CHEST MUSCLE TIGHTNESS AND SAID HE HAD MUSCLE PAIN ON HIS RIGHT SIDE, LIDOCAINE PATCH APPLIED TO RIGHT SIDE, NO FURTHER COMPLAINTS OF CHEST TIGHTNESS OR RIB PAIN THIS SHIFT, COMPLAINS OF SHARP PAIN IN HIS LEFT LEG PHANTOM PAIN, MEDICATED PER ORDER, PARTICIPATED IN ALL THERAPIES, HOURLY ROUNDING COMPLETED, ASSESSMENT COMPLETE, REPOSTIONED EVERY 2 HOURS, WILL CONTINUE TO MONITOR.
[2017-09-16 19:48] VITALS: BP 126/54
--- NOTE | 2017-09-17 05:15 | NUR ---
ASSUMED PT CARE AT 1930. PT ALERT AND ORIENTED, POLITE AND COOPERATIVE WITH CARES. S/P LEFT AKA. ALREADY IN BED AT SHIFT CHANGE. PT DENIES ANY TIGHTNESS OR PAIN IN CHEST OR RIB PAIN. REPORTS PHANTOM PAIN IN LEFT LEG, PRN MEDICATION GIVEN PER ORDERS. STUMP OUTSIDE SALES ACCOUNT REPRESENTATIVE IN PLACE. PT TAKES PILLS WHOLE WITH WATER A FEW AT A TIME. PT HAD SHERBERT, PEANUT BUTTER CRACKERS AND MILK FOR BEDTIME SNACK AND ACQUIESCED TO ORDERED DOSE OF EVENING INSULIN. USED URINAL OVERNIGHT, STAFF EMPTIED. CALL LIGHT AND FREQUENTLY USED ITEMS WITHIN REACH. USES CALL LIGHT APPROPRIATELY. BED ALARM ON FOR SAFETY. HOURLY ROUNDING IN PROGRESS, WILL CONTINUE TO MONITOR.
[2017-09-17 07:30] VITALS: BP 122/60
--- NOTE | 2017-09-17 17:00 | NUR ---
SW attempted to meet with pt to review team conference summary and pt was sound asleep. SW called and left detailed message on pt phone to review team conference summary and plan for pt to remain on rehab another week, team to reassess pt length of stay during team conference on Sunday 09/24 with possible dc Sunday 09/24, 09/25, or Tuesday 09/26. SW mentioned in message that pt diet approved to be able to change to regular diet and that team recommending family training prior to pt dc. SW to continue to follow to assist with safe dc planning.
--- NOTE | 2017-09-17 17:53 | NUR ---
ASSUMED CARE AT 0730 PATIENT ALERT/ORIENTED, PAIN MEDS GIVEN REQUESTED, UP WITH STAND/PIVOT TO W/C, TOILET WITH GAIT BELT AND STANDBY. PARTICIPATED IN ALL THERAPIES TODAY, TO DINING ROOM FOR MEALS, BED/CHAIR ALARMS IN PLACE, HOURLY ROUNDING COMPLETED, CALL LIGHT IN REACH. TIANA TO LEFT STUMP REMOVED. INCISION HEALING WELL, LEFT 4 TIANA TO MID INCISION LINE DUE TO SOME DRAINAGE AT SITE. WILL REMOVE OVER THE WEEKEND. GAUZE DRESSING APPLIED SECURED WITH PAPER TAPE
[2017-09-17 19:35] VITALS: BP 117/54
--- NOTE | 2017-09-18 02:27 | NUR ---
ASSUMED CARE @ 1927-09/17-FRI.AWAKE IN BED W/ HOB UP 30 DEGREES.FILING FINGERNAILS @ THIS TIME. VISITING.WATCHING TV ALSO.BED ALARM ALREADY ON @ 1927. STUMP SHAKER REPAIRER IN PLACE LEFT STUMP.MEPILEX DRSG IN PLACE BALL RIGHT FOOT.TWO URINALS W/IN REACH.SEE PAIN MANAGEMENT @ 2051.DOES NOT TURN @ NIGHT. PREFERS TO STAY ON HIS BACK @ NIGHT W/ HOB UP 30 DEGREES.ON HOURLY ROUNDS.
--- NOTE | 2017-09-18 05:58 | NUR ---
SLEEPING SINCE 2199.USED URINAL X1 ONLY.TOOK ALL ORANGE SHERBET HS SNACK. LATER ,TOOK ONLY 75 % 2% MILK.
[2017-09-18 07:52] VITALS: BP 108/57
--- NOTE | 2017-09-18 16:34 | NUR ---
ASSUMED CARE AT 0730 PATIENT ALERT/ORIENTED, NO PAIN MEDICATION REQUIRED THIS SHIFT, UP WITH STAND/PIVOT TO W/C WITH GAIT BELT. BED/CHAIR ALARMS IN PLACE, CALL LIGHT IN REACH. PARTICIPATED IN ALL THERAPIES TODAY, HOURLY ROUNDING COMPLETED. AIRWORTHINESS SAFETY INSPECTOR DELIVERED NEW STUMP SOCK LINER AND APPLIED TO LEFT STUMP, PATIENT TOLERATING NEW SOCK LINER. TO DINING ROOM FOR MEALS.
[2017-09-18 19:35] VITALS: BP 133/56
--- NOTE | 2017-09-19 00:33 | NUR ---
ASSUMED CARE @ 1914-09/18-.AWAKE IN BED W/ HOB UP 30 DEGREES.WATCHING TV. VISITING @ THIS TIME.BED ALARM PUT ON @ 1914.STUMP SUPERVISOR PICKING CREW IN PLACE -LEFT STUMP.TAKES SHIRT OFF @ NIGHT.TWO URINALS W/IN REACH.REFUSED TO TURN @ NIGHT.PREFERS TO STAY ON HIS BACK @ NIGHT.ON HOURLY ROUNDS.
--- NOTE | 2017-09-19 05:18 | NUR ---
SLEEPING SINCE 2200.USED URINAL X2 DURING NIGHT.TOOK 3 PIECES CRACKERS W/ PEANUT BUTTER & 90% MILK HS SNACKS.PAIN MED OFFERED @ HS BUT REFUSED BY PATIENT.
[2017-09-19 07:50] VITALS: BP 134/57
--- NOTE | 2017-09-19 11:04 | NUR ---
SW called and spoke with pt Joelle to follow up about dc planning and schedule family training. Family training scheduled for Friday 9 am. SW discussed whether or not there was an update on DME especially stair lift being installed; pt said that she heard that could be installed next week as far as she knows. However, pt said that she has a family member who is a nutrition technician who can help pt get in 3 steps and then she said pt will not have to use stairs inside or go out for a week so pt felt that they have more time if stair lift is not installed by day of dc. SW to continue to follow to assist with safe dc planning.
--- NOTE | 2017-09-19 16:36 | NUR ---
ASSUMED CARE AT 0730 ALERT ORIENTED PLEASANT COOPERATIVE. HX OF L AKA WEARS STUMP FOLDER TIER INCISION C/D/I. DENIES NEED FOR PAIN MED. TRANSFERS WITH SBA G BELT WALKER FROM BED TO W/C AND TO TOILET. FEELS URGE TO HAVE BM BUT NO RESULTS MIRALAX ORDERED GAVE SUPPOSITORY THIS AFTERNOON. USING CALL LIGHT APPROPRIATELY FOR ASSISTANCE. PARTICIPATING IN THERAPIES THROUGHOUT THE DAY. ACCUCHECK WAS 152 THIS A.M. THEN 66 AT 1200. ASYMPTPOMATIC.
--- NOTE | 2017-09-19 19:30 | NUR ---
IN BED MOANING IN PAIN. STATING LEFT LEG PAIN AT A "10". PAIN MED GIVEN. AT BEDSIDE VISITING. TOOK MEDS WHOLE HALF OF THEM AT A TIME WITH WATER.
[2017-09-19 20:22] VITALS: BP 123/60
--- NOTE | 2017-09-20 05:58 | NUR ---
NO FURTHER C/O PAIN. USED URINAL DURING THE NIGHT. HOURLY ROUNDING IN PROGRESS.
[2017-09-20 07:44] VITALS: BP 127/60
[2017-09-20 08:05] VITALS: BP 127/60
--- NOTE | 2017-09-20 17:10 | NUR ---
ASSUMED CARE AT 0730 PATIENT ALERT/ORIENTED, PAIN TO LEFT STUMP BUT REQUIRES NO PAIN MEDS THIS SHIFT, TO DINING ROOM FOR MEALS. UP WITH STANDY ASSIT AND GAIT BELT TO W/C. WHEELS SELF AROUND UNIT. BED/CHAIR ALARMS IN PLACE, CALL LIGHT IN REACH. PARTICIPATED IN ALL THERAPIES TODAY. STUMP COLLABORATIVE PHYSICIAN IN PLACE.
--- NOTE | 2017-09-20 19:30 | NUR ---
IN BED MOANING WITH LEFT LEG PAIN RATED "10". AT BEDSIDE. PAIN MED GIVEN. TOOK MEDS WHOLE A FEW AT A TIME WITH WATER. SNACK PROVIDED.
[2017-09-20 21:14] VITALS: BP 121/56
--- NOTE | 2017-09-21 05:57 | NUR ---
PAIN MED LAST GIVEN AT 0010 WITH RELIEF. USED URINAL DURING THE NIGHT. HOURLY ROUNDING IN PROGRESS.
[2017-09-21 07:57] VITALS: BP 110/44
--- NOTE | 2017-09-21 17:35 | NUR ---
ASSUMED CARE AT 0730, PATIENT ALERT/ORIENTED, UP WITH STANDBY ASSIST, TO W/C, STUMP HEAT PLANT SPECIALIST IN PLACE. REMAINDER OF TIANA REMOVED TO LEFT STUMP, INCISION CLEAN/DRY/INTACT. PT TO DINING ROOM FOR MEALS, VISITED THIS AFTERNOON, BED/CHAIR ALARMS IN PLACE, HOURLY ROUNDING COMPLETED. CALL LIGHT IN REACH
[2017-09-21 20:11] VITALS: BP 94/41
--- NOTE | 2017-09-21 20:15 | NUR ---
RESTING IN BED. C/O LEFT LEG PAIN AND LEFT PHANTOM FOOT PAIN RATED "7". TOO SOON FOR OXY. GAVE PRN FLEXERIL. SNACK PROVIDED. AT BEDSIDE VISITING.
--- NOTE | 2017-09-22 05:39 | NUR ---
GAVE PAIN MED AT 0214 FOR C/O LEFT LEG PAIN WITH RELIEF. USED URINAL DURING THE NIGHT. HOURLY ROUNDING IN PROGRESS.
[2017-09-22 08:12] VITALS: BP 142/61
--- NOTE | 2017-09-22 14:46 | NUR ---
ASSUMED CARE AT 0730. ALERT ORIENTED PLEASANT COOPERATIVE. HX OF Gavin LUQUE, WEARS STUMP COMMERCIAL PRODUCTION EDITOR. MIN AMT. DRAINAGE ON 4X4 CLEANSED WITH WOUND CLEANSER AND FRESH DRESSING APPLIED AFTER SHOWER. INCISION HEALED DRAINAGE FROM MIDDLE OF INCISION. TRANSFERS WITH SBA G BELT WALKER HOPS TO TRANSFER FROM BED TO W/C AND TOILET. USING CALL LIGHT APPROPRIATELY FOR ASSIST. TO DR FOR MEALS PER W/C. APPETITE FAIR. ACCUCHECK WAS 171 THIS A.M. AND 109 AT 1200. HERE WORKING WITH O.T. FOR BATH. DRESSING CHANGED TO RT. FOOT AFTER SHOWER. TAKES MEDS WITHOUT DIFFICULTY. DENIES NEED FOR PAIN MEDS WHEN ASKED.
--- NOTE | 2017-09-22 15:31 | NUR ---
CAYLA called and spoke with pt Joelle at [phone] and followed up about upcoming team conference and discussed dc planning. Pt said she felt family training went okay this morning and that she said that the new level of care will be different but that she thought that pt would be safe at home and that she could provide needed care. Pt continues to follow up about stair lift being installed and says that she had 3 quotes and then the [place] decides which company they will use and then they will install after arrangements made between [place] and stair lift company. Pt again stated that the stair lift did not have to be installed for pt to dc home safely due to help with pt into the home and then pt not having to leave for a week or two and pt anticipates the stair lift being installed by then. Pt picking up shower chair and BSC tomorrow and she plans to ask about HH agency preference. CAYLA mentioned team conference on Friday and possible dc this week. SW to continue to follow to assist with finalizing safe dc plan.
[2017-09-22 19:43] VITALS: BP 98/47
--- NOTE | 2017-09-23 05:21 | NUR ---
ASSUMED CARES AT 1920. PT ALERT AND ORIENTED. COOPERATIVE. ALREADY IN BED. S/P LEFT AKA. STUMP WHITING CAN WORKER IN PLACE. C/O PAIN TO LEFT STUMP. PAIN MEDS GIVEN NEEDED. HAD CONCERNS THAT THE CUT BACK ON OXY IR MAY NOT HELP HIS PAIN. TOLD THAT WOULD SEE HOW HE DID DURING THE NIGHT. ACCUCHECK 75 AND SO SNACK GIVEN. RECHECK WAS 81. CRACKERS AND MILK GIVEN. RECHECK AGAIN WAS 119. PT REFUSED TO TAKE FULL LANTUS DOSE AND SO ONLY 20 UNITS GIVEN. USED URINAL AND STAFF EMPTIED. SLEPT WELL MOST OF THE NIGHT. CALL LIGHT IN REACH. BED ALARM ON.
[2017-09-23 08:07] VITALS: BP 129/57
--- NOTE | 2017-09-23 10:14 | NUR ---
CAYLA received call from June with [facility] clarifying that tub bench, RW, and grab bars were still needed as the pt had apparently told someone that she was getting the DME from somewhere else. CAYLA explained that SW was under the impression from pt [facility]; SW was not ordering DME; pt only has part A benefits so there would be no other payer source for DME than the [facility]. June mentioned that pt has an appt at 1:00PM and if pt dc in time to go to appt, pt could have Rxs filled and bean picker DME at that time. CAYLA called pt Joelle and explained what had happened regarding DME order and she said that she was not sure how [facility] thought that but that yes, pt still planned on [facility] up [facility] from [facility]. CAYLA mentioned the appt and pt said that appt was no longer needed, it was related to pt urinating and that issue had been resolved. Pt still going to determine HH preference and will discuss this with CAYLA so SW will be able to assist in arranging HH at [place].
--- NOTE | 2017-09-23 16:52 | NUR ---
ASSUMED CARE AT 0730. ALERT ORIENTED PLEASANT COOPERATIVE. HX OF L AKA WEARS STUMP INCIDENT HANDLER TO L STUMP. TRANSFERS WITH SBA G BELT FROM BED TO W/C. USES CALL LIGHT APPROPRIATELY FOR ASSISTANCE. MEDICATED X 2 FOR L STUMP PAIN WITH PARTIAL RELIEF. PARTICIPATING IN THERAPIES THROUGHOUT THE DAY. APPETITE [facility] RE HOSPITAL MEALS. EVENING ACCUCHECK AT 1700 63 APPLE JUICE GIVEN. MEALS IN DR. RAMESH LIMA IN W/C TO ROOM AND TO
[2017-09-23 20:00] VITALS: BP 104/54
--- NOTE | 2017-09-24 05:10 | NUR ---
ASSUMED CARES AT 1920. PT ALERT AND ORIENTED. PLEASANT. PT DENIED ANY NEED FOR PAIN MEDS. USED URINAL AND RN EMPTIED. HAS SLEPT WELL ALL NIGHT. NO COMPLAINTS. CALL LIGHT IN REACH.
[2017-09-24 07:44] VITALS: BP 100/52
[2017-09-24 08:32] LABS: CALCIUM 9.8 mg/dL (8.5-10.1); POTASSIUM 5.1 mmol/L (3.5-5.1)
--- NOTE | 2017-09-24 15:43 | NUR ---
SW met with pt to review team conference summary. Plan for pt to remain on rehab with possible dc Friday pending pt kidney function and recommendation from certified pedorthotist. Pt hopeful for dc tomorrow but was understanding of possible need for more time. Pt expressed that he is aware pt picked up all DME needed and that [facility] arranges HH services. SW received message earlier in the day from NINFA Stephenson at [facility] stating the above about DME being picked up and that HH services will be arranged...the Transition nurse Tanya at the [facility] handles continuation of HH services. SW called and spoke with pt and reviewed team's recommendations. Pt said that pt and pt already know that eventually pt will need dialysis and they are already working with a [facility] certified pedorthotist to monitor those needs. Pt and pt continue to plan to follow up with [facility] doctors. Pt in agreement with plan for pt to dc Friday so that pt can prepare home and plan for pt return. SW to continue to follow to assist with finalizing safe dc plan.
--- NOTE | 2017-09-24 16:09 | NUR ---
PATIENT UP IN WHEELCHAIR ALL SHIFT. POOR APPETITE FOR BREAKFAST. INSULIN GIVEN WITH MEALS WHEN REQUIRED. PRN HYDRODOCONE GIVEN PER AUG ORDERS, PATIENT SLEEPING IN CHAIR AFTER GIVEN. NO BM NOTED THIS SHIFT, WILL ENCOURAGE STOOL SOFTNERS.
--- NOTE | 2017-09-24 20:10 | NUR ---
RESTING IN BED AND VISITING WITH . FLEXERIL GIVEN PER REQUEST. STATES LEFT STUMP PAIN AT A "7". SNACK PROVIDED. TOOK MEDS WHOLE A FEW AT A TIME WITH WATER. CALL LIGHT AND 2 URINALS WITHIN REACH.
[2017-09-24 22:41] VITALS: BP 128/43
--- NOTE | 2017-09-25 05:37 | NUR ---
LAST GIVEN PAIN MED AT 0041 FOR C/O LEFT LEG PAIN WITH RELIEF. USES URINAL DURING THE NIGHT. HOURLY ROUNDING IN PROGRESS. POSSIBLE DISCHARGE TO HOME TODAY.
[2017-09-25 07:47] VITALS: BP 135/60
--- NOTE | 2017-09-25 19:35 | NUR ---
RESTING IN BED. AT BEDSIDE. PAIN MED GIVEN FOR C/O LEFT LEG PAIN. TWO URINALS AND CALL LIGHT WITHIN REACH. TOOK MEDS WHOLE A FEW AT A TIME WITH WATER. SNACK PROVIDED.
--- NOTE | 2017-09-25 20:02 | NUR ---
ASSUMED CARE AT 0730 PATIENT ALERT/ORIENTED PAIN MEDS GIVEN X1 WITH GOOD RELIEF, UP WITH STANDBY ASSIST, STUMP SCHOOL PSYCHOLOGY PROFESSOR TO LEFT AKA IN PLACE, PATIENT TRANSFERS TO W/C WITH STANDBY. PARTICIPATED IN ALL THERAPIES TODAY, HOURLY ROUNDING COMPLETED. BED/CHAIR ALARMS IN PLACE, CALL LIGHT IN REACH. TO DINING ROOM FOR MEALS. TO BE DISCHARGE HOME ON FRIDAY.
[2017-09-25 20:23] VITALS: BP 103/39
[2017-09-26 05:16] LABS: CALCIUM 9.4 mg/dL (8.5-10.1); CREATININE 3.2 mg/dL (0.6-1.3)
--- NOTE | 2017-09-26 06:07 | NUR ---
HAD DIFFICULTY GETTING TO SLEEP DUE TO LEFT LEG PAIN. LAST GIVEN PAIN MED AT 0132 WITH RELIEF. USED URINAL. STUMP COMPUTER PROGRAMMING SUPERVISOR IN PLACE. HOURLY ROUNDING IN PROGRESS.
[2017-09-26 08:00] VITALS: BP 137/63
--- NOTE | 2017-09-26 15:02 | NUR ---
CAYLA followed up with pt about dc planning for pt to dc home with on Friday. Pt happy to be able to return home tomorrow and confirmed his family and friends from the fire dept will be available to assist with safety of reentry into pt home. [facility] and all D[facility]. Pt was already aware and did not express any other dc needs. CAYLA called and spoke with pt to discuss safe dc plan and confirm plan as well and pt in agreement and aware of plans and follow up plans.
--- NOTE | 2017-09-26 18:58 | NUR ---
ASSUMMED CARE OF PT AT 0730, PT ALERT AND ORIENTED, PT TRANSFERS WITH STAND PIVOT WITH GB AND WALKER, COMPLAINS OF PAIN IN LEFT STUMP AND PHANTOM SPASMS IN LEFT LEG, MEDICATED PER ORDER, TAKING FOOD AND FLUIDS WELL, BM X 1 THIS SHIFT, PARTICIPATED IN ALL THERAPIES, TO DININGROOM FOR LUNCH AND DINNER, HOURLY ROUNDING COMPLETED, ASSESSMENT COMPLETE, WILL CONTINUE TO MONITER.
[2017-09-26 20:26] VITALS: BP 100/42
--- NOTE | 2017-09-27 02:44 | NUR ---
ASSUMED CARE @ 2022-09/26-FRIDAY.AWAKE IN BED W/ HOB UP. @ BEDSIDE.TWO URINALS W/IN REACH.WANTS SIDERAILS X2 UP.STUMP WARM IN INPLACE RIGHT STUMP. BED ALARM PUT ON @ 2139.ONLY WANTS 20 UNITS LANTUS ONLY INSTEAD OF 30 UNITS @ HS.PRN FLEXERIL 10 MG ORAL GIVEN @ 2137-PER PT'S REQUEST.ON HOURLY ROUNDS. BOTTLE PACKING MACHINE CLEANER DOING ODD HOUR ROUNDS.
--- NOTE | 2017-09-27 05:28 | NUR ---
AWAKE ALL NIGHT.TOOK CRANBERRY JUICE W/ HS MEDS HS SNACK.BRP W/ SBA X6.
--- NOTE | 2017-09-27 05:30 | NUR ---
SLEEPING SINCE 0.TOOK ALL 2% MILK W/ COOKIES HS SNACKS.USED URINAL X2.VOIDED 2ND TIME @ 0345-625 ML URINE.BLADDER SCAN-258 ML.FOR DISCHARGE TODAY-09/27-FRIDAY.
[2017-09-27 07:02] LABS: ALBUMIN 2.9 g/dL (3.4-5.0); CALCIUM 9.6 mg/dL (8.5-10.1); CREATININE 2.8 mg/dL (0.6-1.3); PHOSPHORUS* 4.3 mg/dL (2.5-4.9); POTASSIUM 5.1 mmol/L (3.5-5.1)
[2017-09-27 08:00] VITALS: BP 157/65
[2017-09-27] MEDS ORDERED: HYDROCODONE-AP1 EAC6 PO (09:26)
[2017-09-27] MEDS ORDERED: FLOMAX0.4 MG PO (09:31)
[2017-09-27 09:35] VITALS: BP 157/65
[2017-09-27] MEDS ORDERED: CYCLOBENZAPRINE5 MG PO (09:35)
[2017-09-27] MEDS ORDERED: TYLENOL EXTRA500 MG PO (12:59)
--- NOTE | 2017-09-27 14:09 | NUR ---
ASSUMMED CARE OF PT AT 0730, PT ALERT AND ORIENTED, PT TRANSFERS WITH STAND PIVOT WITH ASSIST OF 1, GB WALKER, TAKING FOOD AND FLUIDS WELL, VOIDS PER URINAL, VOIDED 525 CC WITH A RESIDUAL OF 200CC, INFORMED DR BANG OF RESIDUALS AND HE REQUESTED PT BE CONTINUED ON FLOMAX AT DISCHARGE, PT COMPLAINS OF PAIN IN STUMP AND PHANTOM PAIN DOWN LEFT LEG, MEDICATED PER ORDER, PT REQUESTING FLEXIRIL BE ORDERED FOR DISCHARGE, ORDER OBTAINED FROM DR CAI FOR FLEXIRIL, PT PARTICIPATED IN ALL THERAPIES, HAD LUNCH IN DININGROOM,HOURLY ROUNDING COMPLETED, ASSESSMENT COMPLETE, THIGH AREA COMPLETED HEALED, STUMP INCISION C/D/I, DOES HAVE OCCASIONAL DRAINAGE, INFORMED SHE CAN PLACE SMALL DRESSING OVER DRAINAGE SITE AT HOME IF NEEDED, MEPILEX TO BALL OF RIGHT FOOT, STATES SHE HAS MEPILEX AT HOME, INSTRUCTED AND PT REGARDING DISCHARGE ORDERS, DISCUSSED MEDS, FOLLOW UP APPTS AT [facility], WHEN TO CALL PHYSICIAN, HOME HEALTH THRU [facility], FALL PRECAUTIONS, SCRIPTS GIVEN TO , PT DISCHARGED WITH PHYSICAL THERAPY AND MANAGER COUNCIL, CAR TRANSFER DONE PER PT, BELONGINGS SENT WITH PT, WALKER SENT WITH PT. DISCHARGED TO MAIN ENTRANCE.
--- NOTE | 2017-10-05 08:58 | CON ---
[address] [address] CONSULTATION Name: KAMERON VIDALES Room: [address] IN M.R.#: [id number] Admission: 08/29/17 Attend Phys: Carlee Huston DO Discharge: 09/27/17 Date of : 44 Report #: [id number] THIS REPORT FOR: //name// CC: FAM unknown Carlee Huston DATE OF SERVICE: 09/25/2017 REQUESTING PHYSICIAN: Dr. Ray. REASON FOR CONSULTATION: Acute kidney injury. HISTORY OF PRESENT ILLNESS: The patient is a very pleasant 76-year-old gentleman, with medical history significant for chronic kidney disease stage 4, being followed by a mission planner at the [facility], Dr. Martínez. The patient is here past his left above-knee amputation. His creatinine was 2.2 in 08/2017 and 3.0 now and I was consulted. PAST MEDICAL HISTORY: 1. Peripheral artery disease. 2. Diabetes mellitus type 2. 3. History of hypertension. 4. Chronic kidney disease, stage 4. 5. Status post left above-knee amputation. FAMILY HISTORY: Positive for COPD and cancer. SOCIAL HISTORY: Positive for tobaccoism. MEDICATIONS: Reviewed from my standpoint, he was on lisinopril and lisinopril was stopped today. He continues with Norvasc 10 mg a day, insulin. REVIEW OF SYSTEMS: Denies shortness of breath, chest pain, fever or chills. Denies nausea, vomiting, diarrhea or constipation. He does have pollakiuria and nocturia. Denies changes in visual or hearing acuity. Denies being depressed. In the past, he has discussed with his mission planner dialysis options and he knows that he will require dialysis relatively in the near future. PHYSICAL EXAMINATION: GENERAL: He is awake, alert, oriented. VITAL SIGNS: His blood pressure 135/60, heart rate is 76, afebrile. HEENT: Pupils are round. NECK: Supple. LUNGS: Clear. CARDIOVASCULAR: Regular rate. ABDOMEN: [place] [address] CONSULTATION Name: KAMERON VIDALES Room: [address] IN M.R.#: [id number] Admission: 08/29/17 Attend Phys: Carlee Huston DO Discharge: 09/27/17 Date of : 42 Report #: [id number] LOWER EXTREMITIES: No edema. He has left above-knee amputation. ASSESSMENT AND PLAN: A 76-year-old gentleman with chronic kidney disease stage 4. He has acute kidney injury, probably because of some mild volume depletion and concomitant use of lisinopril. Lisinopril was stopped. He is not volume overloaded, so I encouraged him to drink a little bit more water. Follow his labs. Other problems, peripheral artery disease, diabetes mellitus type 2, history of COPD. Thank you very much for asking my opinion on the patient on acute kidney injury. <ELECTRONICALLY SIGNED> By: Juanpablo Burrell MD 10/05/17 0858 [id number] Sravanthi Burrell MD /[facility]
--- NOTE | 2017-10-07 13:29 | H ---
[address] [address] HISTORY AND PHYSICAL Name: KAMERON VIDALES Room: [address] IN M.R.#: [id number] Admission: 08/29/17 Attend Phys: Carlee Huston DO Discharge: 09/27/17 Date of : 44 Report #: [id number] THIS REPORT FOR: //name// CC: FAM unknown Carlee Huston DATE OF SERVICE: 08/30/2017 HISTORY OF PRESENT ILLNESS: The patient is admitted status post left above-knee amputation. Previous level of function was independent to modified independent with activities of daily living. Current level of function is minimum to moderate assistance depending on therapy, activity and time of day. He does have mild changes in his memory status post left AKA due to nonhealing diabetic foot wound with peripheral vascular disease, originally admitted on 08/20/2017. Date of surgery is 08/22/2017. In the postoperative period, he did have some alterations in activities of living. Did participate with physical and occupational therapy, but did have some ongoing wound needs [facility] He also had some urinary retention and a Cortez was placed. They did do a voiding trial and that failed. Previous level of function was independent to modified independent with activities of daily living. Current level of function is minimum to maximum assistance of 1-2 depending on therapy, activity and time of day. Memory, cognition, expression, social interaction and problem solving are all within normal limits. Estimated length of stay is 12-14 days. DISCHARGE DISPOSITION: To the home setting with supportive family. He does reside in a split-level house, 6-8 stairs to enter with the side rail. PAST MEDICAL HISTORY: Hypertension, uncontrolled diabetes with random glucose of 163, significant anemia with a hemoglobin of 8.0 on , onychomycosis, diabetic foot ulcer, tobacco dependence, left lower extremity ischemia. PAST SURGICAL HISTORY: Angiography, angioplasty, left fem-pop bypass, left TMA, left tibial bypass, left iliac angiography. MEDICATIONS: Reviewed and reconciled by myself and are available in the MAR. ALLERGIES: , CONTRAST MEDIA, TORADOL, HYDROMORPHONE, VANCOMYCIN, GABAPENTIN, ATORVASTATIN AND . FAMILY HISTORY: Cardiac disease and stroke. SOCIAL HISTORY: No tobacco, alcohol or illicit drug use. REVIEW OF SYSTEMS: A 14-point review of systems was done today is negative except as mentioned in HPI. Specifically, no fever, chest pain, [place] [id number] HISTORY AND PHYSICAL Name: KAMERON VIDALES Room: [address]#: [id number] Admission: 08/29/17 Attend Phys: Carlee Huston DO Discharge: 09/27/17 Date of : 44 Report #: [id number] breath, abdominal pain or distention. PHYSICAL EXAMINATION: GENERAL: Alert, oriented, in no apparent distress. VITAL SIGNS: Reviewed and are stable. HEENT: Head atraumatic, normocephalic. Pupils equal, round and reactive. ABDOMEN: Soft, nontender, nondistended. NEUROLOGIC: Cranial nerves 2-12 are grossly intact. No focal neuro deficits, 5/5 strength in the bilateral upper and lower extremities. SKIN: Warm and dry. Left AKA is freshly wrapped and is not visualized at this time, but wound care and vascular are both following the wound as well as medicines. ASSESSMENT: Multiple medical comorbidities requiring acute inpatient rehabilitation including peripheral neuropathy, cerebrovascular accident, methicillin-resistant Staphylococcus aureus, uncontrolled diabetes and hypertension. PLAN: 1. Admission to inpatient rehabilitation to facilitate safe discharge home. 2. PT, OT, speech, language, case management, nursing and HIMS to make evaluations and recommendations. 3. We will team weekly. 4. Diabetic carb-controlled diet. 5. Pain control. <ELECTRONICALLY SIGNED> By: Carlee Huston DO 10/07/17 1329 [id number] Huston DO /nt
--- NOTE | 2017-10-07 13:30 | D ---
[facility] [address] [place] [address] DISCHARGE SUMMARY Name: KAMERON VIDALES Room: [address] IN M.R.#: [id number] Admission: 08/29/17 Attend Phys: Carlee Huston DO Discharge: 09/27/17 Date of : 44 Report #: [id number] THIS REPORT FOR: //name// CC: FAM unknown Carlee Huston DATE OF SERVICE: 09/26/2017 DISCHARGE DIAGNOSIS: Status post left above knee amputation. DISCHARGE DISPOSITION: To the home setting with supportive family. He is awaiting stair glide into the house. Nevertheless, he is able to enter the house and does have the help of his . Follow up with [facility], Nephrology and Vascular Surgery as previously recommended and scheduled. He did progress well in his therapies with some fluctuation given his upper body strength. Initially, he also had some issues with pain; however, they resolved. His creatinine was watched closely as [facility]. [facility] during this stay and he will follow up with an already scheduled appointment in about 2 weeks. MEDICATIONS: Reviewed and reconciled by myself and are available in the MAR. FALL PRECAUTIONS: Nonweightbearing on the left lower extremity, wheelchair utilized for ambulation in the community. DISCHARGE PHYSICAL EXAMINATION: GENERAL: Alert, oriented, in no apparent distress. VITAL SIGNS: Reviewed and are stable. HEENT: Head atraumatic, normocephalic. Pupils equal, round, reactive. ABDOMEN: Soft, nontender, nondistended. SKIN: Warm and dry. Stump is intact. <ELECTRONICALLY SIGNED> By: Carlee Huston DO 10/07/17 1330 [id number] Huston DO /nt
== END 2017-09-27 13:30 | disposition home health service (06) | DRG 300 ==
LOC: M.REH 13:42
PROVIDERS: Internal Medicine; Internal Medicine Nephrology; ADMIT Physical Medicine & Rehabilitation
DX: E11.51 Type 2 diabetes mellitus with diabetic peripheral angiopathy without gangrene (principal); N18.4 Chronic kidney disease, stage 4 (severe); N17.9 Acute kidney failure, unspecified; N39.0 Urinary tract infection, site not specified; R33.9 Retention of urine, unspecified; E11.65 Type 2 diabetes mellitus with hyperglycemia; D64.9 Anemia, unspecified; E11.621 Type 2 diabetes mellitus with foot ulcer; G89.29 Other chronic pain; E11.22 Type 2 diabetes mellitus with diabetic chronic kidney disease; I12.9 Hypertensive chronic kidney disease with stage 1 through stage 4 chronic kidney disease, or unspecified chronic kidney disease; N40.1 Benign prostatic hyperplasia with lower urinary tract symptoms; F11.90 Opioid use, unspecified, uncomplicated; B37.9 Candidiasis, unspecified; R26.9 Unspecified abnormalities of gait and mobility; R21 Rash and other nonspecific skin eruption; B35.6 Tinea cruris; Z89.612 Acquired absence of left leg above knee; Z91.041 Radiographic dye allergy status; Z88.6 Allergy status to analgesic agent; Z88.8 Allergy status to other drugs, medicaments and biological substances; Z86.73 Personal history of transient ischemic attack (TIA), and cerebral infarction without residual deficits; Z79.82 Long term (current) use of aspirin; Z79.4 Long term (current) use of insulin; Z79.899 Other long term (current) drug therapy; Z87.891 Personal history of nicotine dependence; Z82.3 Family history of stroke; Z82.49 Family history of ischemic heart disease and other diseases of the circulatory system